=== PATIENT | male | born 1995 | race American Indian/Alaskan Native ===

== ENCOUNTER 2019-03-16 08:35 | Emergency (ER) | payer OTHER ==
[2019-03-16 08:40] VITALS: BP 124/82
[2019-03-16 08:58] LABS: Basophils # (Auto) 0.1 K/mm3 (0.0-0.1); Basophils % (Auto) 1.3 % (0.0-1.8); Eosinophils # (Auto) 0.6 K/mm3 (0.0-0.4); Eosinophils % (Auto) 9.9 % (0.0-4.3); Hematocrit 43.7 % (35.5-45.6); Hemoglobin 14.6 gm/dl (11.8-15.2); Lymphocytes # (Auto) 1.9 K/mm3 (1.2-5.4); Lymphocytes % (Auto) 30.7 % (13.4-35.0); Mean Corpuscular HGB Conc 33 % (32-34); Mean Corpuscular Volume 82 fl (84-94); Monocytes # (Auto) 0.4 K/mm3 (0.0-0.8); Platelet Count 212 K/mm3 (140-440); Red Blood Count 5.32 M/mm3 (3.65-5.03)
[2019-03-16] MEDS ORDERED: ZOFRAN ODT PO ONE (09:09)
--- NOTE | 2019-03-16 09:09 | Emergency Department Report ---
ED N/V/D HPI - General Chief complaint: Nausea/Vomiting/Diarrhea Stated complaint: VOMITING Time Seen by Provider: 03/16/19 09:04 Source: patient Mode of arrival: Ambulatory Limitations: No Limitations - History of Present Illness Initial comments: Mr. Tompkins is a 23-year-old male who's had 8 months of nausea vomiting for the past 4 days. He's had several ED visits for similar symptoms. History of tobacco and marijuana use. He smoked marijuana for several years. He denies any pain. MD complaint: nausea, vomiting -: Gradual, days(s) (4), month(s) (8) Description of Vomiting: food contents Associated Abdominal Pain: No Severity: mild Consistency: constant Worsens with: eating - Related Data Previous Rx's Medication Instructions Recorded Last Taken Type Famotidine [Pepcid] 20 mg PO BID 30 Days #60 tablet 03/16/19 Unknown Rx Promethazine [Phenergan] 25 mg PO Q6HR PRN #10 tab 03/16/19 Unknown Rx Allergies Allergy/AdvReac Type Severity Reaction Status Date / Time No Known Allergies Allergy Unverified 03/16/19 08:37 ED Review of Systems ROS: Stated complaint: VOMITING Other details as noted in HPI Comment: All other systems reviewed and negative Constitutional: denies: fever, malaise Gastrointestinal: nausea, vomiting. denies: abdominal pain ED Past Medical Hx - Past Medical History Previous Medical History?: No - Surgical History Past Surgical History?: No - Social History Smoking Status: Current Every Day Smoker Substance Use Type: Marijuana - Medications Home Medications: Home Medications Medication Instructions Recorded Confirmed Last Taken Type Famotidine [Pepcid] 20 mg PO BID 30 Days #60 tablet 03/16/19 Unknown Rx Promethazine [Phenergan] 25 mg PO Q6HR PRN #10 tab 03/16/19 Unknown Rx ED Physical Exam - General Limitations: No Limitations General appearance: alert, in no apparent distress - Head Head exam: Present: atraumatic, normocephalic - Eye Eye exam: Present: normal appearance - ENT ENT exam: Present: mucous membranes moist - Neck Neck exam: Present: normal inspection - Respiratory Respiratory exam: Present: normal lung sounds bilaterally. Absent: respiratory distress, wheezes, rales, rhonchi - Cardiovascular Cardiovascular Exam: Present: regular rate, normal rhythm, normal heart sounds. Absent: systolic murmur, diastolic murmur, rubs, gallop - GI/Abdominal GI/Abdominal exam: Present: soft, normal bowel sounds. Absent: distended, tenderness, guarding, rebound - Rectal Rectal exam: Present: deferred - Extremities Exam Extremities exam: Present: normal inspection - Back Exam Back exam: Present: normal inspection - Neurological Exam Neurological exam: Present: alert, oriented X3 - Psychiatric Psychiatric exam: Present: normal affect, normal mood - Skin Skin exam: Present: warm, dry, intact, normal color. Absent: rash ED Course Vital Signs 03/16/19 08:39 Temperature 98.7 F Pulse Rate 79 Respiratory 18 Rate Blood Pressure 124/82 O2 Sat by Pulse 97 Oximetry ED Medical Decision Making - Lab Data Result diagrams: 03/16/19 08:45 03/16/19 08:45 Laboratory Results - last 24 hr 03/16/19 03/16/19 08:45 08:45 WBC 6.1 RBC 5.32 H Hgb 14.6 Hct 43.7 MCV 82 L MCH 27 L MCHC 33 RDW 14.0 Plt Count 212 Lymph % (Auto) 30.7 [place] % (Auto) 7.0 Eos % (Auto) 9.9 H Baso % (Auto) 1.3 Lymph # 1.9 [place] # 0.4 Eos # 0.6 H Baso # 0.1 Seg Neutrophils % 51.1 Seg Neutrophils # 3.1 Sodium 140 Potassium 3.7 Chloride 100.7 Carbon Dioxide 27 Anion Gap 16 BUN 12 Creatinine 1.1 Estimated GFR > 60 BUN/Creatinine Ratio 11 Glucose 104 H Calcium 9.0 Total Bilirubin 1.10 AST 18 ALT 9 Alkaline Phosphatase 45 Total Protein 7.4 Albumin 4.3 Albumin/Globulin Ratio 1.4 Lipase 17 - Medical Decision Making Mr. Bonilla presents with nausea vomiting for the past 8 months. Differential diagnosis includes cannabis hyperemesis syndrome, irritable bowel syndrome, inflammatory bowel disease. I recommend tobacco and marijuana use cessation. I also recommended evaluation by outpatient medicine physician and GI physician. Provider referrals. Prescribed promethazine and famotidine. I review labs. CBC within normal limits. Normal white count. BMP WNL Critical care attestation.: If time is entered above; I have spent that time in minutes in the direct care of this critically ill patient, excluding procedure time. ED Disposition Clinical Impression: Nausea & vomiting, Cannabinoid hyperemesis syndrome Disposition: [id number] TO HOME OR SELFCARE Is pt being admited?: No Does the pt Need Aspirin: No Condition: Stable Instructions: Acute Nausea and Vomiting (ED) Prescriptions: Famotidine [Pepcid] 20 mg PO BID 30 Days #60 tablet Promethazine [Phenergan] 25 mg PO Q6HR PRN #10 tab PRN Reason: Nausea Forms: Work/School Release Form(ED)
[2019-03-16 09:20] LABS: Alanine Aminotransferase 9 units/L (7-56); Albumin 4.3 g/dL (3.9-5); BUN/Creatinine Ratio 11; Blood Urea Nitrogen 12 mg/dL (9-20); Hemolysis Index 3
== END 2019-03-16 09:35 | disposition home or self-care (01) ==
LOC: ED 08:35
DX: R11.2 Nausea with vomiting, unspecified (principal); F12.988 Cannabis use, unspecified with other cannabis-induced disorder; F17.200 Nicotine dependence, unspecified, uncomplicated
CPT/HCPCS: 36415; 80053; 83690; 85025; Q0162

== ENCOUNTER 2019-04-18 11:45 | Emergency (ER) | payer OTHER ==
[2019-04-18 12:06] VITALS: BP 119/78
--- NOTE | 2019-04-18 12:06 | Emergency Department Report ---
Blank Doc - Documentation Documentation: This is a 23-year-old male that presents with left eyebrow lac s/p playing bas ketball and elbowed. Denies any LOC or headaches. This initial assessment/diagnostic orders/clinical plan/treatment(s) is/are subject to change based on patient's health status, clinical progression and re- assessment by fellow clinical providers in the ED. Further treatment and workup at subsequent clinical providers discretion. Patient/guardians urged not to elope from the ED as their condition may be serious if not clinically assessed and managed. Initial orders include: 1- Patient sent to [facility] for further evaluation and treatment
== END 2019-04-18 14:52 | disposition left against medical advice (07) ==
LOC: ED 11:45
DX: S01.112A Laceration without foreign body of left eyelid and periocular area, initial encounter (principal); W50.0XXA Accidental hit or strike by another person, initial encounter; Y93.67 Activity, basketball; Y92.89 Other specified places as the place of occurrence of the external cause; Y99.8 Other external cause status; Z53.21 Procedure and treatment not carried out due to patient leaving prior to being seen by health care provider